=== PATIENT | female | born 1935 | race Caucasian/White ===

== ENCOUNTER 2017-03-08 10:33 | Emergency (ER) | payer MEDICARE | END 2017-03-08 12:48 | disposition home or self-care (01) | LOC: ER 10:33 | DX: M54.9 Dorsalgia, unspecified (principal); I25.10 Atherosclerotic heart disease of native coronary artery without angina pectoris; M85.80 Other specified disorders of bone density and structure, unspecified site; M51.34 Other intervertebral disc degeneration, thoracic region; Z79.899 Other long term (current) drug therapy | CPT/HCPCS: 71250; 72128; 96372; 99283; 99283-25 ==